=== PATIENT | male | born 1975 | race Hispanic/Latino ===

== ENCOUNTER 2018-10-07 20:05 | Observation (INO) | payer OTHER ==
[~2018-10-07] VITALS: Ht 177.8 cm; Wt 120.2 kg
[~2018-10-07 20:05] MED LIST: ATOR10 PO; CARV25TA PO; DOXY100T2 PO; HYDR25TA PO; LISI40TA4 PO; METF-445 PO
[2018-10-07 20:30] LABS: BASOPHILS % (AUTO) 0.8 % (0.0-5.0); HEMATOCRIT 46.4 % (42-54); MEAN CORPUSCULAR HEMOGLOBIN 33.4 pg (27.0-33.0); MEAN CORPUSCULAR HGB CONC 35.8 g/dL (32.0-36.0); MEAN CORPUSCULAR VOLUME 93.4 fL (79-99); NEUTROPHILS % (AUTO) 71.2 % (40.0-77.0); PLATELET COUNT (AUTO) 214 K/uL (130-400); RED BLOOD CELL COUNT(AUTO) 4.97 MIL/uL (4.50-6.20); WHITE BLOOD COUNT (AUTO) 10.6 K/uL (4.8-10.8)
[2018-10-07] MEDS ORDERED: ASPIRIN 81MG TAB.CHEW ONE (20:32)
[2018-10-07] MEDS ORDERED: ONDANSETRON HCL 4 MG/2 ML VIAL ONE (20:32)
[2018-10-07] MEDS ORDERED: MORPHINE SULFATE 2 MG/ML 1ML SYG ONE (20:33)
[2018-10-07] MEDS ORDERED: FAMOTIDINE/PF 20 MG/2 ML VIAL IV ONE (20:33)
[2018-10-07 20:44] LABS: APPEARANCE,URINE Clear (CLEAR); BILIRUBIN,URINE Small (NEGATIVE); COLOR,URINE Dark Yellow (YELLOW); CREATININE 1.2 mg/dL (0.5-1.5); GLUCOSE, URINE (UA) >=1000 mg/dL (NEGATIVE); KETONES,URINE Trace mg/dL (NEGATIVE); LEUKOCYTE ESTERASE ,URINE Negative (NEGATIVE); NITRATE,URINE Negative (NEGATIVE); OCCULT BLOOD,URINE Negative (NEGATIVE); POTASSIUM 3.1 mmol/L (3.5-5.1); PROTEIN,URINE Trace mg/dL (NEGATIVE)
[2018-10-07 20:49] LABS: ALBUMIN 3.2 g/dL (3.5-5.0); BILIRUBIN,TOTAL 0.8 mg/dL (0.2-1.0)
[2018-10-07 20:52] LABS: AMPHET/METH SCREEN,URINE NEGATIVE (NEGATIVE); BARBITURATE SCREEN, URINE NEGATIVE (NEGATIVE); BENZODIAZEPINES SCREEN,URINE NEGATIVE (NEGATIVE); CANNABINOID SCREEN,URINE NEGATIVE (NEGATIVE); COCAINE SCREEN,URINE NEGATIVE (NEGATIVE); OPIATE SCREEN,URINE NEGATIVE (NEGATIVE); PHENCYCLIDINE SCREEN,URINE NEGATIVE (NEGATIVE)
[2018-10-07 20:54] LABS: BACTERIA,URINE Rare /HPF (None Seen); RBC,URINE 0-1 /HPF (0-1); WBC,URINE 0-1 /HPF (0-1)
[2018-10-07 20:56] LABS: ABG OXYGEN SATURATION 90.7 % (95.0-99.0); BASE EXCESS,VENOUS BLOOD GAS -0.7 (-2.0-3.0); HCO3,VENOUS BLOOD GAS 22.8 (21.0-28.0); PCO2,VENOUS BLOOD GAS 35 (35-48); PH,VENOUS BLOOD GAS 7.437 (7.350-7.450)
[2018-10-07 20:56] LABS: SQUAMOUS EPITHELIAL CELL,UR Rare /HPF (0-2)
[2018-10-07] MEDS ORDERED: POTASSIUM BICARB/CIT AC 25 MEQ TABLET.EFF ONE (22:46)
[2018-10-07] MEDS ORDERED: INSULIN HUMULIN R 100 UNIT/ML 3ML ONE (22:46)
[2018-10-07] MEDS ORDERED: SODIUM CHLORIDE 0.9% 500ML 500 ML IV ONE (23:01)
[2018-10-07] MEDS ORDERED: NITROGLYCERIN 0.4 MG SL TAB SL ONE (23:01)
[2018-10-07] MEDS ORDERED: DEXTROSE 50%-WATER 50 ML DISP.SYRIN IV PRN (23:45)
[2018-10-07] MEDS ORDERED: GLUCAGON 1MG KIT 1 MG ML IM PRN (23:45)
[2018-10-08] VITALS (7 sets, daily range): BP systolic 124–161; BP diastolic 72–98
[2018-10-08] MEDS ORDERED: PENI500T2 PO (04:08)
[2018-10-08] MEDS ORDERED: GLIP1TAB5 PO (04:08)
[2018-10-08] MEDS ORDERED: ATOR10 PO (04:08)
[2018-10-08] MEDS ORDERED: MORPHINE SULFATE 4 MG/1ML SYG ONE (05:41)
[2018-10-08] MEDS ORDERED: MAG HYDROX/AL HYDROX/SIMETH ES 30 ML SUSP UDCUP ONE (05:41)
[2018-10-08] MEDS: NITROGLYCERIN 1GM/1 INCH PACKET TD SCH ×5 (05:43→17:20)
[2018-10-08] MEDS ORDERED: MAG HYDROX/AL HYDROX/SIMETH ES 30 ML SUSP UDCUP PO PRN (05:45)
[2018-10-08] MEDS ORDERED: ONDANSETRON HCL 4 MG/2 ML VIAL IVP PRN (05:45)
[2018-10-08] MEDS ORDERED: MORPHINE SULFATE 4 MG/1ML SYG IM PRN (05:45)
[2018-10-08] MEDS: INSULIN R PO SS1 SQ SCH ×4 (07:30→21:00)
[2018-10-08] MEDS: ASPIRIN 325MG EC TAB 325 MG TABLET.DR PO SCH (10:26)
--- NOTE | 2018-10-08 14:17 | NUR ---
Gabriela Arias aware; home meds pending to be resumed, orders entered.
[2018-10-08] MEDS ORDERED: SODIUM CHLORIDE 0.9% 1000ML 1,000 ML IV SCH (15:15)
[2018-10-08] MEDS ORDERED: ATORVASTATIN CALCIUM 20 MG TABLET PO SCH (21:00)
[2018-10-08] MEDS: CARVEDILOL 25 MG TABLET PO SCH (21:55)
[2018-10-09] MEDS: NITROGLYCERIN 1GM/1 INCH PACKET TD SCH ×3 (01:44→11:50)
[2018-10-09 03:00] VITALS: BP 144/94
[2018-10-09 05:56] LABS: BASOPHILS % (AUTO) 0.9 % (0.0-5.0); EOSINOPHILS % (AUTO) 1.5 % (0.0-8.0); HEMATOCRIT 45.3 % (42-54); LYMPHOCYTES % (AUTO) 36.4 % (21.0-51.0); MEAN CORPUSCULAR HEMOGLOBIN 32.8 pg (27.0-33.0); MEAN CORPUSCULAR HGB CONC 35.1 g/dL (32.0-36.0); MEAN CORPUSCULAR VOLUME 93.3 fL (79-99); MONOCYTES % (AUTO) 4.8 % (3.0-13.0); NEUTROPHILS % (AUTO) 56.4 % (40.0-77.0); NUCLEATED RED BLOOD CELLS 0.1 % (0.0-0.19); PLATELET COUNT (AUTO) 200 K/uL (130-400); RED BLOOD CELL COUNT(AUTO) 4.85 MIL/uL (4.50-6.20); RED CELL DISTRIBUTION WIDTH 13.7 % (11.0-15.5); WHITE BLOOD COUNT (AUTO) 8.6 K/uL (4.8-10.8)
[2018-10-09 06:01] LABS: ALANINE AMINOTRANSFERASE 23 U/L (12-78); ALBUMIN 2.9 g/dL (3.5-5.0); ALCOHOL, BLOOD < 3 mg/dL (0-10); ASPARTATE AMINOTRANSFERASE 11 U/L (10-37); BILIRUBIN,DIRECT 0.2 mg/dL (0.0-0.3); BILIRUBIN,TOTAL 1.2 mg/dL (0.2-1.0); CARBON DIOXIDE 30 mmol/L (21-32); CHLORIDE 99 mmol/L (101-111); CHOLESTEROL 117 mg/dL (<200); CREATININE 0.8 mg/dL (0.5-1.5); GLOMERULAR FILTR. RATE CALC 112 mL/min (>60); GLUCOSE,RANDOM 135 mg/dL (70-105); HDL CHOLESTEROL 27 mg/dL (29-71); LDL DIRECT 77 mg/dL (0-99); LIPASE 232 U/L (114-286); POTASSIUM 3.4 mmol/L (3.5-5.1); SODIUM SERUM 137 mmol/L (136-145); TOTAL PROTEIN, SERUM 6.3 g/dL (6.0-8.3); TRIGLYCERIDES 107 mg/dL (30-200); UREA NITROGEN, BLOOD 13 mg/dL (7-18)
[2018-10-09 06:15] LABS: B-TYPE NATRIURETIC PEPTIDE 129 pg/mL (0-100)
[2018-10-09 07:12] LABS: ABG BASE EXCESS 3.1 mmol/L (-2.0-3.0); ABG HCO3 26.6 mmol/L (21.0-28.0); ABG OXYGEN SATURATION 95.4 % (95.0-99.0); ABG PCO2 37 mmHg (35-48)
[2018-10-09] MEDS: INSULIN R PO SS1 SQ SCH ×2 (07:17→11:52)
[2018-10-09 08:00] VITALS: BP 142/94
[2018-10-09] MEDS: CARVEDILOL 25 MG TABLET PO SCH (08:14)
[2018-10-09] MEDS: ASPIRIN 325MG EC TAB 325 MG TABLET.DR PO SCH (08:14)
[2018-10-09] MEDS ORDERED: LISINOPRIL 40 MG TABLET PO SCH (09:00)
[2018-10-09] MEDS ORDERED: POTASSIUM CHLORIDE 10% ELIXIR 20 MEQ/15 ML UDCUP PO PRN (11:15)
[2018-10-09] MEDS ORDERED: POTASSIUM CHLORIDE 20MEQ/100ML 100 ML IV PRN (11:15)
[2018-10-09] MEDS ORDERED: PHARMACY COMMUNICATION MISC SCH (11:15)
[2018-10-09] MEDS ORDERED: LIDOCAINE HCL-MPF 1% 2ML VIAL IVP PRN (11:15)
[2018-10-09 11:28] VITALS: BP 147/95
[2018-10-09] MEDS ORDERED: MAGNESIUM SULFATE 1 GM in SODIUM CHLORIDE 0.9% 50 ML IV SCH (11:30)
--- NOTE | 2018-10-09 11:30 | NUR ---
Discharge orders noted in chart; verbal orders rec'd for mg and kcl replacement protocol at present for Mg of 1.7 and K of 3.4. Will discharge once replacement complete.
[2018-10-09] MEDS: POTASSIUM CHLORIDE 20 MEQ ERTAB PO PRN ×2 (11:50→13:34)
--- NOTE | 2018-10-09 15:25 | NUR ---
Discharge teaching completed in the room with pt and family. Emphasis on discharge dx of gastritis, s/s to monitor for, and when to seek emergency care / call 911. Pt is to follow up with Dr. Jackson in 3-5 days. Office is closed; Pt instructed he must call for appointment. No new rx written. PIV removed, tip intact. Dressed with 2x2 and band aid after hemostasis. Pt tolerated well. Telepack removed. Pt wheeled to front lobby by [facility] staff for discharge home via private car. Pt in stable condition. Accompanied by family.
== END 2018-10-09 15:10 | disposition home or self-care (01) ==
LOC: EDH 20:05 → EDHIP 22:53 → 3AH 10-08 01:00
PROVIDERS: ADMIT Internal Medicine Pulmonary Disease; ATTEND Internal Medicine Pulmonary Disease
DX: K29.00 Acute gastritis without bleeding (principal); I12.9 Hypertensive chronic kidney disease with stage 1 through stage 4 chronic kidney disease, or unspecified chronic kidney disease; N18.3 Chronic kidney disease, stage 3 (moderate); E11.22 Type 2 diabetes mellitus with diabetic chronic kidney disease; E66.9 Obesity, unspecified; E78.5 Hyperlipidemia, unspecified; Z87.442 Personal history of urinary calculi; Z79.84 Long term (current) use of oral hypoglycemic drugs; Z79.899 Other long term (current) drug therapy; Z87.891 Personal history of nicotine dependence
CPT/HCPCS: 36415 ×2; 36600 ×2; 71045; 71250; 74150; 76705; 78227; 80053 ×2; 80061; 80305; 81001; 82010; 82247; 82248; 82803 ×2; 82948 ×7; 83690 ×2; 83735; 83880; 84484 ×4; 85025 ×2; 93005 ×4; 94010; 96361 ×2; 96365; 96366; 96372 ×2; 99284; A9537; G0378 ×38; G0480; J1815 ×3; J2270 ×2; J2405; J3475; J3490; J7030; J7040

== ENCOUNTER 2018-11-10 20:57 | Observation (INO) | payer OTHER ==
[~2018-11-10] VITALS: Ht 177.8 cm; Wt 121.1 kg
[~2018-11-10 20:57] MED LIST changes: -DOXY100T2 PO; +GLIP1TAB5 PO; -METF-445 PO; +PENI500T2 PO
[2018-11-10] MEDS ORDERED: ONDANSETRON HCL 4 MG/2 ML VIAL ONE (21:14)
[2018-11-10] MEDS ORDERED: ACETAMINOPHEN EXTRA STRENGTH 500 MG TABLET ONE (21:14)
[2018-11-10] MEDS ORDERED: SODIUM CHLORIDE 0.9% 1000ML 4,000 ML IV ONE (21:14)
[2018-11-10 21:25] LABS: APPEARANCE,URINE Clear (CLEAR); BILIRUBIN,URINE Small (NEGATIVE); COLOR,URINE Dark Yellow (YELLOW); GLUCOSE, URINE (UA) >=1000 mg/dL (NEGATIVE); KETONES,URINE Trace mg/dL (NEGATIVE); LEUKOCYTE ESTERASE ,URINE Small (NEGATIVE); NITRATE,URINE Negative (NEGATIVE); OCCULT BLOOD,URINE Small (NEGATIVE); PH,URINE 5.5 (5.0-8.0); PROTEIN,URINE POS 2+ mg/dL (NEGATIVE)
[2018-11-10 21:40] LABS: BASOPHILS % (AUTO) 0.4 % (0.0-5.0); LYMPHOCYTES % (AUTO) 7.1 % (21.0-51.0); MEAN CORPUSCULAR HEMOGLOBIN 32.2 pg (27.0-33.0); MEAN CORPUSCULAR HGB CONC 34.6 g/dL (32.0-36.0); MEAN CORPUSCULAR VOLUME 93.1 fL (79-99); MONOCYTES % (AUTO) 5.2 % (3.0-13.0); NEUTROPHILS % (AUTO) 87.3 % (40.0-77.0); PLATELET COUNT (AUTO) 153 K/uL (130-400); RED BLOOD CELL COUNT(AUTO) 4.84 MIL/uL (4.50-6.20); RED CELL DISTRIBUTION WIDTH 13.5 % (11.0-15.5); WHITE BLOOD COUNT (AUTO) 19.9 K/uL (4.8-10.8)
[2018-11-10 21:43] LABS: BACTERIA,URINE Few /HPF (None Seen); SQUAMOUS EPITHELIAL CELL,UR Rare /HPF (0-2); WBC,URINE 26-50 /HPF (0-1)
[2018-11-10 21:44] LABS: MUCUS,URINE Rare LPF (None Seen)
[2018-11-10 21:50] LABS: CARBON DIOXIDE 28 mmol/L (21-32); CHLORIDE 92 mmol/L (101-111); CREATININE 1.1 mg/dL (0.5-1.5); GLOMERULAR FILTR. RATE CALC 77 mL/min (>60); GLUCOSE,RANDOM 286 mg/dL (70-105); SODIUM SERUM 129 mmol/L (136-145); UREA NITROGEN, BLOOD 14 mg/dL (7-18)
[2018-11-10 21:54] LABS: INR 1.08 (0.85-1.15); PARTIAL THROMBOPLASTIN TIME 30.3 SEC (26.3-35.5); PROTHROMBIN TIME 11.3 SEC (9.6-11.6)
[2018-11-10 22:05] LABS: ALANINE AMINOTRANSFERASE 23 U/L (12-78); ALBUMIN 3.1 g/dL (3.5-5.0); ASPARTATE AMINOTRANSFERASE 20 U/L (10-37); BILIRUBIN,TOTAL 2.3 mg/dL (0.2-1.0); CREATINE KINASE, TOTAL 41 U/L (21-232); MYOGLOBIN 29 ng/mL (10-92); TROPONIN I < 0.04 ng/mL (0.00-0.06)
[2018-11-10] MEDS ORDERED: CEFTRIAXONE SODIUM 2 GM VIAL ONE (22:26)
[2018-11-10 22:47] LABS: RAPID GROUP A STREP NEGATIVE (NEGATIVE)
[2018-11-10 23:14] LABS: BILIRUBIN,DIRECT 0.4 mg/dL (0.0-0.3)
[2018-11-11] MEDS ORDERED: POTASSIUM CHLORIDE 20 MEQ ERTAB PO ONE (00:28)
[2018-11-11] MEDS ORDERED: HYDROMORPHONE 1 MG/1 ML AMP IVP PRN (00:45)
[2018-11-11] MEDS: LACTATED RINGERS 1000ML 1,000 ML IV SCH ×3 (00:45→23:55)
[2018-11-11] MEDS ORDERED: ONDANSETRON HCL 4 MG/2 ML VIAL IVP PRN (00:45)
[2018-11-11] MEDS ORDERED: LACTATED RINGERS 1000ML 1,000 ML IV ONE (02:06)
[2018-11-11 02:30] VITALS: BP 142/99
[2018-11-11] MEDS ORDERED: PENI500T2 PO (03:07)
[2018-11-11] MEDS ORDERED: LISI40TA4 PO (03:07)
[2018-11-11] MEDS ORDERED: GLIP1TAB5 PO (03:07)
[2018-11-11] MEDS ORDERED: HYDR25TA PO (03:07)
[2018-11-11] MEDS ORDERED: OMEP40CA37 PO (03:07)
[2018-11-11] MEDS ORDERED: SENN-107 PO (03:07)
[2018-11-11] MEDS ORDERED: ATOR10 PO (03:08)
[2018-11-11] MEDS ORDERED: CARV25TA PO (03:08)
[2018-11-11] MEDS ORDERED: POTASSIUM CHLORIDE 10% ELIXIR 20 MEQ/15 ML UDCUP PO PRN (03:30)
[2018-11-11] MEDS ORDERED: LIDOCAINE HCL-MPF 1% 2ML VIAL IVP PRN (03:30)
[2018-11-11] MEDS ORDERED: MAGNESIUM 2GM PREMIX 50ML 50 ML IV PRN (03:30)
[2018-11-11] MEDS ORDERED: POTASSIUM CHLORIDE 20MEQ/100ML 100 ML IV PRN (03:30)
[2018-11-11 04:11] LABS: MEAN CORPUSCULAR HEMOGLOBIN 32.5 pg (27.0-33.0); MEAN CORPUSCULAR HGB CONC 35.1 g/dL (32.0-36.0); MEAN CORPUSCULAR VOLUME 92.4 fL (79-99); PLATELET COUNT (AUTO) 143 K/uL (130-400); RED BLOOD CELL COUNT(AUTO) 4.44 MIL/uL (4.50-6.20); RED CELL DISTRIBUTION WIDTH 13.4 % (11.0-15.5); WHITE BLOOD COUNT (AUTO) 18.6 K/uL (4.8-10.8)
[2018-11-11 04:19] LABS: CREATININE 0.9 mg/dL (0.5-1.5); MAGNESIUM 1.3 mg/dL (1.80-2.40); POTASSIUM 3.2 mmol/L (3.5-5.1)
[2018-11-11 08:00] VITALS: BP 137/87
[2018-11-11] MEDS: CEFTRIAXONE SODIUM 1 GM IVP SCH (09:24)
[2018-11-11 11:51] VITALS: BP 146/90
--- NOTE | 2018-11-11 12:00 | NUR ---
dr. evans aware of bs in the 200's states will round on patient later no orders states i have to see patient.
[2018-11-11] MEDS: ACETAMINOPHEN 325 MG TAB PO PRN ×2 (12:04→20:11)
[2018-11-11] MEDS: POTASSIUM CHLORIDE 20 MEQ ERTAB PO PRN ×3 (12:05→22:28)
--- NOTE | 2018-11-11 15:20 | NUR ---
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 COLI- STATES HAS HAD MANY UTIS AND KIDNEY STONES IN THE PAST, HAS BEEN DISABLED ABOUT THREE YEARS, LIES WITH [facility] WHO WILL PROVIDE TRANSPORT HOME , NO DME NO PORIVDER SERVICES, HAS BEEN TO [facility] BEFORE, BUT WOULD BE WILLING TO DO A SNF IF NEEDED FOR ABX. DENIES WEANESS OR MOBILITY PROBLEMS AT THIS TIME . PT HERE FOR UTI, AWAITING DISPOSITION// CULTURES CM TO FOLLOW Addendum: 11/11/18 at 1730 by SANDHYA DEAN RN CM Amended: Links added.
[2018-11-11 17:03] VITALS: BP 150/78
[2018-11-11] MEDS ORDERED: DOCUSATE SODIUM PO SCH (18:30)
[2018-11-11] MEDS ORDERED: GLUCAGON 1MG KIT 1 MG ML IM PRN (18:30)
[2018-11-11] MEDS ORDERED: MORPHINE SULFATE 2 MG/ML 1ML SYG IV PRN (18:30)
[2018-11-11] MEDS ORDERED: DEXTROSE 50%-WATER 50 ML DISP.SYRIN IV PRN (18:30)
[2018-11-11] MEDS ORDERED: SENNOSIDES PO SCH (18:30)
[2018-11-11 19:00] VITALS: BP 147/77
[2018-11-11] MEDS: MEROPENEM 1 GM VIAL IVP SCH (20:07)
[2018-11-11] MEDS: ATORVASTATIN CALCIUM 10 MG TABLET PO SCH (20:10)
[2018-11-11] MEDS: CARVEDILOL 25 MG TABLET PO SCH (20:11)
[2018-11-11] MEDS: INSULIN HUMULIN R 100 UNIT/ML 3ML SQ SCH (20:21)
[2018-11-12] VITALS: BP 117/72
[2018-11-12] MEDS: MEROPENEM 1 GM VIAL IVP SCH ×3 (03:04→19:38)
[2018-11-12 04:00] VITALS: BP 142/81
[2018-11-12 05:44] LABS: AMPHET/METH SCREEN,URINE NEGATIVE (NEGATIVE); BARBITURATE SCREEN, URINE NEGATIVE (NEGATIVE); BENZODIAZEPINES SCREEN,URINE NEGATIVE (NEGATIVE); CANNABINOID SCREEN,URINE NEGATIVE (NEGATIVE); COCAINE SCREEN,URINE NEGATIVE (NEGATIVE); OPIATE SCREEN,URINE NEGATIVE (NEGATIVE); PHENCYCLIDINE SCREEN,URINE NEGATIVE (NEGATIVE)
[2018-11-12 05:56] LABS: HEMATOCRIT 38.4 % (42-54); MEAN CORPUSCULAR HEMOGLOBIN 32.2 pg (27.0-33.0); MEAN CORPUSCULAR HGB CONC 34.8 g/dL (32.0-36.0); MEAN CORPUSCULAR VOLUME 92.5 fL (79-99); PLATELET COUNT (AUTO) 129 K/uL (130-400); RED BLOOD CELL COUNT(AUTO) 4.15 MIL/uL (4.50-6.20); RED CELL DISTRIBUTION WIDTH 13.6 % (11.0-15.5); WHITE BLOOD COUNT (AUTO) 14.2 K/uL (4.8-10.8)
[2018-11-12 06:03] LABS: CREATININE 0.8 mg/dL (0.5-1.5); POTASSIUM 3.3 mmol/L (3.5-5.1)
[2018-11-12] MEDS: INSULIN HUMULIN R 100 UNIT/ML 3ML SQ SCH ×4 (06:13→20:04)
[2018-11-12] MEDS: POTASSIUM CHLORIDE 20 MEQ ERTAB PO PRN ×2 (06:13→09:24)
[2018-11-12 08:00] VITALS: BP 143/76
[2018-11-12] MEDS: LACTATED RINGERS 1000ML 1,000 ML IV SCH ×2 (08:45→19:37)
[2018-11-12] MEDS: CARVEDILOL 25 MG TABLET PO SCH ×2 (09:00→19:39)
[2018-11-12] MEDS: LISINOPRIL 40 MG TABLET PO SCH (09:00)
[2018-11-12] MEDS: HYDROCHLOROTHIAZIDE 25 MG TABLET PO SCH (09:00)
[2018-11-12] MEDS: CEFTRIAXONE SODIUM 1 GM IVP SCH (09:26)
[2018-11-12 11:00] VITALS: BP 138/87
[2018-11-12 16:00] VITALS: BP 144/83
[2018-11-12 19:00] VITALS: BP 163/93
[2018-11-12] MEDS: ATORVASTATIN CALCIUM 10 MG TABLET PO SCH (19:38)
[2018-11-13] VITALS: BP 154/85
[2018-11-13] MEDS: LACTATED RINGERS 1000ML 1,000 ML IV SCH (00:45)
[2018-11-13] MEDS: MEROPENEM 1 GM VIAL IVP SCH ×2 (03:07→11:52)
[2018-11-13 04:00] VITALS: BP 163/94
[2018-11-13 04:38] LABS: BASOPHILS % (AUTO) 0.7 % (0.0-5.0); EOSINOPHILS % (AUTO) 0.8 % (0.0-8.0); HEMATOCRIT 40.6 % (42-54); LYMPHOCYTES % (AUTO) 19.2 % (21.0-51.0); MEAN CORPUSCULAR HEMOGLOBIN 32.3 pg (27.0-33.0); MEAN CORPUSCULAR VOLUME 92.3 fL (79-99); MONOCYTES % (AUTO) 6.5 % (3.0-13.0); NEUTROPHILS % (AUTO) 72.8 % (40.0-77.0); PLATELET COUNT (AUTO) 149 K/uL (130-400); RED BLOOD CELL COUNT(AUTO) 4.39 MIL/uL (4.50-6.20); RED CELL DISTRIBUTION WIDTH 13.6 % (11.0-15.5); WHITE BLOOD COUNT (AUTO) 6.5 K/uL (4.8-10.8)
[2018-11-13] MEDS: INSULIN HUMULIN R 100 UNIT/ML 3ML SQ SCH ×2 (06:17→11:54)
[2018-11-13 08:00] VITALS: BP 157/97
--- NOTE | 2018-11-13 08:00 | NUR ---
AM ROUNDS, STATES FEELING BETTER. WAS TOLD YESTERDAY HE WAS GOING TO BE DISCHARGED TODAY. NO DC ORDERS IN PLACE AT THIS TIME.
[2018-11-13] MEDS: HYDROCHLOROTHIAZIDE 25 MG TABLET PO SCH (09:08)
[2018-11-13] MEDS: LISINOPRIL 40 MG TABLET PO SCH (09:08)
[2018-11-13] MEDS: CARVEDILOL 25 MG TABLET PO SCH (09:09)
[2018-11-13] MEDS: CEFTRIAXONE SODIUM 1 GM IVP SCH ×2 (09:09→09:10)
[2018-11-13 11:00] VITALS: BP 163/104
--- NOTE | 2018-11-13 16:00 | NUR ---
DISCHARGED NOW USING TEACH BACK, VERBALIZED UNDERSTANDING OF ALL INST. GIVEN. RX FOR BACTRIM DS. CALLED IN TO [facility] IN [place].WILL FOLLOW UP WITH WITH PCP IN AM.
== END 2018-11-13 16:15 | disposition home or self-care (01) ==
LOC: EDH 20:57 → EDHIP 11-11 00:13 → 3AH 11-11 01:20
PROVIDERS: ADMIT Internal Medicine Critical Care Medicine; ATTEND Internal Medicine Critical Care Medicine
DX: N12 Tubulo-interstitial nephritis, not specified as acute or chronic (principal); E11.9 Type 2 diabetes mellitus without complications; E78.5 Hyperlipidemia, unspecified; I10 Essential (primary) hypertension; F17.200 Nicotine dependence, unspecified, uncomplicated; Z87.442 Personal history of urinary calculi
CPT/HCPCS: 36415 ×4; 71045; 76700; 80048 ×2; 80053; 80305; 81001; 82248; 82550; 82948 ×10; 83605 ×2; 83690; 83735; 83874; 84484; 85025 ×2; 85027 ×2; 85610; 85730; 87040 ×4; 87077; 87088; 87186; 87804 ×2; 87880; 93005; 94660 ×2; 96365; 96366; 96375; 96376 ×2; 99284; G0378 ×62; J0696 ×4; J1170; J1815 ×6; J2185 ×6; J2405; J3475; J7030; J7120 ×3

== ENCOUNTER 2018-12-11 23:37 | Observation (INO) | payer OTHER ==
[~2018-12-11] VITALS: Ht 177.8 cm; Wt 119.2 kg
[~2018-12-11 23:37] MED LIST changes: +OMEP40CA37 PO; +SENN-107 PO
[2018-12-11] MEDS ORDERED: ACETAMINOPHEN EXTRA STRENGTH 500 MG TABLET ONE (23:52)
[2018-12-12] VITALS (7 sets, daily range): BP systolic 142–171; BP diastolic 82–100
[2018-12-12] MEDS ORDERED: SODIUM CHLORIDE 0.9% 1000ML 1,000 ML IV ONE (01:00)
[2018-12-12 01:10] LABS: BASOPHILS % (AUTO) 1.4 % (0.0-5.0); EOSINOPHILS % (AUTO) 1.7 % (0.0-8.0); HEMATOCRIT 49.3 % (42-54); LYMPHOCYTES % (AUTO) 34.4 % (21.0-51.0); MEAN CORPUSCULAR HEMOGLOBIN 33.4 pg (27.0-33.0); MEAN CORPUSCULAR HGB CONC 35.4 g/dL (32.0-36.0); MEAN CORPUSCULAR VOLUME 94.6 fL (79-99); MONOCYTES % (AUTO) 4.3 % (3.0-13.0); NEUTROPHILS % (AUTO) 58.2 % (40.0-77.0); NUCLEATED RED BLOOD CELLS 0.1 % (0.0-0.19); PLATELET COUNT (AUTO) 173 K/uL (130-400); RED BLOOD CELL COUNT(AUTO) 5.21 MIL/uL (4.50-6.20); RED CELL DISTRIBUTION WIDTH 15.3 % (11.0-15.5); WHITE BLOOD COUNT (AUTO) 12.9 K/uL (4.8-10.8)
[2018-12-12 01:12] LABS: APPEARANCE,URINE Clear (CLEAR); BILIRUBIN,URINE Negative (NEGATIVE); COLOR,URINE Yellow (YELLOW); GLUCOSE, URINE (UA) Negative (NEGATIVE); KETONES,URINE Negative (NEGATIVE); LEUKOCYTE ESTERASE ,URINE Negative (NEGATIVE); NITRATE,URINE Negative (NEGATIVE); OCCULT BLOOD,URINE Negative (NEGATIVE); PROTEIN,URINE Negative (NEGATIVE); UROBILINOGEN,URINE 0.2 mg/dL (0.2-1.0)
[2018-12-12 01:19] LABS: AMPHET/METH SCREEN,URINE NEGATIVE (NEGATIVE); BARBITURATE SCREEN, URINE NEGATIVE (NEGATIVE); BENZODIAZEPINES SCREEN,URINE NEGATIVE (NEGATIVE); CANNABINOID SCREEN,URINE NEGATIVE (NEGATIVE); COCAINE SCREEN,URINE NEGATIVE (NEGATIVE); OPIATE SCREEN,URINE NEGATIVE (NEGATIVE); PHENCYCLIDINE SCREEN,URINE NEGATIVE (NEGATIVE)
[2018-12-12 01:23] LABS: ALBUMIN 3.5 g/dL (3.5-5.0); BILIRUBIN,TOTAL 0.7 mg/dL (0.2-1.0); CREATININE 0.9 mg/dL (0.5-1.5); TOTAL PROTEIN, SERUM 7.3 g/dL (6.0-8.3)
[2018-12-12 01:24] LABS: INR 0.94 (0.85-1.15); PARTIAL THROMBOPLASTIN TIME 26.5 SEC (26.3-35.5); PROTHROMBIN TIME 9.9 SEC (9.6-11.6)
[2018-12-12 01:25] LABS: ALCOHOL, BLOOD 92 mg/dL (0-10); CREATINE KINASE, TOTAL 39 U/L (21-232); LIPASE 229 U/L (114-286)
[2018-12-12] MEDS ORDERED: POTASSIUM CHLORIDE 20 MEQ ERTAB PO ONE (02:06)
[2018-12-12] MEDS ORDERED: THIAMINE HCL 100 MG/ML 2ML VIAL ONE (04:09)
[2018-12-12] MEDS ORDERED: M.V.I. IV [ADULT] 10 ML VIAL IV ONE (04:10)
[2018-12-12] MEDS ORDERED: FOLIC ACID 5 MG/ML 10 ML VIAL ONE (04:28)
[2018-12-12 06:37] LABS: BASOPHILS % (AUTO) 1.5 % (0.0-5.0); EOSINOPHILS % (AUTO) 1.9 % (0.0-8.0); HEMATOCRIT 47.6 % (42-54); LYMPHOCYTES % (AUTO) 39.8 % (21.0-51.0); MEAN CORPUSCULAR HEMOGLOBIN 33.1 pg (27.0-33.0); MEAN CORPUSCULAR HGB CONC 35.1 g/dL (32.0-36.0); MEAN CORPUSCULAR VOLUME 94.3 fL (79-99); NEUTROPHILS % (AUTO) 51.8 % (40.0-77.0); NUCLEATED RED BLOOD CELLS 0.1 % (0.0-0.19); PLATELET COUNT (AUTO) 148 K/uL (130-400); RED BLOOD CELL COUNT(AUTO) 5.05 MIL/uL (4.50-6.20); RED CELL DISTRIBUTION WIDTH 15.1 % (11.0-15.5); WHITE BLOOD COUNT (AUTO) 9.6 K/uL (4.8-10.8)
[2018-12-12] MEDS ORDERED: POTASSIUM CHLORIDE 20 MEQ ERTAB PO PRN (06:45)
[2018-12-12] MEDS ORDERED: POTASSIUM CHLORIDE 20MEQ/100ML 100 ML IV PRN (06:45)
[2018-12-12] MEDS ORDERED: NITROGLYCERIN 0.4 MG SL TAB SL PRN (06:45)
[2018-12-12] MEDS ORDERED: ONDANSETRON HCL 4 MG/2 ML VIAL IVP PRN (06:45)
[2018-12-12] MEDS ORDERED: ACETAMINOPHEN 325 MG TAB PO PRN (06:45)
[2018-12-12] MEDS ORDERED: POTASSIUM CHLORIDE 10% ELIXIR 20 MEQ/15 ML UDCUP PO PRN (06:45)
[2018-12-12 06:50] LABS: CREATININE 0.4 mg/dL (0.5-1.5)
[2018-12-12 07:12] LABS: POTASSIUM 2.3 mmol/L (3.5-5.1)
--- NOTE | 2018-12-12 07:58 | NUR ---
PATIENT ARRIVED ON UNIT ALERT AND ORIENTATED X3, DENIES PAIN AT THIS TIME , OREINTATED TO ROOM AND CALL LIGHT SYSTEM , SIDE RAILS UP X 2, WILL CONTINUE TO MONITOR.
--- NOTE | 2018-12-12 08:19 | NUR ---
DR YUSUF CONSULTED ON PATIENT RETURNED CALL AND WILL SEE PATIENT TODAY
[2018-12-12] MEDS ORDERED: MAGNESIUM 2GM PREMIX IV PRN (08:30)
[2018-12-12] MEDS: BANANA BAG IV SCH ×4 (09:00)
[2018-12-12] MEDS: ASPIRIN 81MG TAB.CHEW PO SCH (09:00)
[2018-12-12] MEDS ORDERED: PANTOPRAZOLE SODIUM 40 MG TABLET.DR PO ONE (09:59)
[2018-12-12] MEDS ORDERED: CALCIUM GLUCONATE 1 GM/10 ML VIAL IV SCH (11:00)
[2018-12-12] MEDS ORDERED: DEXTROSE 50%-WATER 50 ML DISP.SYRIN IV PRN (11:00)
[2018-12-12] MEDS ORDERED: GLUCAGON 1MG KIT 1 MG ML IM PRN (11:00)
[2018-12-12] MEDS: LIDOCAINE HCL-MPF 1% 2ML VIAL IJ PRN ×2 (11:11→14:05)
[2018-12-12] MEDS: IPRATROPIUM 0.5 MG/2.5 ML INH IH SCH ×3 (12:00→23:50)
[2018-12-12] MEDS: INSULIN HUMULIN R 100 UNIT/ML 3ML SQ SCH ×3 (12:07→21:55)
--- NOTE | 2018-12-12 12:44 | NUR ---
INITIAL MET W PT, SLEEPY BUT ORIENTED, LIVES W [facility] WHO WILL PROVIDE TRANSPORT HOME. NO DME, NO PROVIDER, DOMEN[place], IS INDP OF ADLS, DCP IS HOME Addendum: 12/12/18 at 1247 by SANDHYA DEAN RN Amended: Links added.
[2018-12-12 13:06] LABS: CREATININE 0.9 mg/dL (0.5-1.5)
[2018-12-12] MEDS: LACTATED RINGERS IV SCH (14:09)
[2018-12-12] MEDS: POTASSIUM CHLORIDE IV SCH (14:09)
[2018-12-12] MEDS: CEFTRIAXONE SODIUM 1 GM IVP SCH (16:34)
[2018-12-12] MEDS: FAMOTIDINE 20MG TAB 20 MG TAB PO SCH (21:58)
[2018-12-13] VITALS (8 sets, daily range): BP systolic 141–171; BP diastolic 84–105
[2018-12-13] MEDS: POTASSIUM CHLORIDE IV SCH ×3 (01:12→20:47)
[2018-12-13] MEDS: LACTATED RINGERS IV SCH ×3 (01:12→20:47)
[2018-12-13 05:05] LABS: BASOPHILS % (AUTO) 0.2 % (0.0-5.0); EOSINOPHILS % (AUTO) 1.4 % (0.0-8.0); HEMATOCRIT 47.3 % (42-54); LYMPHOCYTES % (AUTO) 37.9 % (21.0-51.0); MEAN CORPUSCULAR HEMOGLOBIN 33.1 pg (27.0-33.0); MEAN CORPUSCULAR HGB CONC 35.1 g/dL (32.0-36.0); MEAN CORPUSCULAR VOLUME 94.3 fL (79-99); MONOCYTES % (AUTO) 6.4 % (3.0-13.0); NEUTROPHILS % (AUTO) 54.1 % (40.0-77.0); PLATELET COUNT (AUTO) 158 K/uL (130-400); RED BLOOD CELL COUNT(AUTO) 5.02 MIL/uL (4.50-6.20); RED CELL DISTRIBUTION WIDTH 15.4 % (11.0-15.5); WHITE BLOOD COUNT (AUTO) 9.3 K/uL (4.8-10.8)
[2018-12-13] MEDS: INSULIN HUMULIN R 100 UNIT/ML 3ML SQ SCH ×4 (05:18→20:46)
[2018-12-13 05:21] LABS: HEMOGLOBIN A1C 7.2 % (4.0-6.0)
[2018-12-13] MEDS: IPRATROPIUM 0.5 MG/2.5 ML INH IH SCH ×3 (05:26→19:17)
[2018-12-13 05:28] LABS: CREATININE 0.8 mg/dL (0.5-1.5); POTASSIUM 3.7 mmol/L (3.5-5.1)
[2018-12-13] MEDS: PANTOPRAZOLE SODIUM 40 MG TABLET.DR PO SCH (06:41)
[2018-12-13] MEDS: HYDRALAZINE HCL 20 MG/ML VIAL IV PRN (06:42)
--- NOTE | 2018-12-13 07:53 | NUR ---
BLOOD PRESSURE RECHECK BLOOD PRESSURE RECHECK ORTHOSTATIC CHECKED LAYING B/P 162/95 P 81, SITTING B/P 155/97 , P 77 STANDING B/P 163/98 P 78. WILL CONTINUE TO MONITOR
[2018-12-13] MEDS: FAMOTIDINE 20MG TAB 20 MG TAB PO SCH ×2 (09:27→20:47)
[2018-12-13] MEDS: BANANA BAG IV SCH ×8 (09:27→13:27)
[2018-12-13] MEDS: ASPIRIN 81MG TAB.CHEW PO SCH (09:28)
[2018-12-13] MEDS: ENOXAPARIN SODIUM 30 MG/0.3 ML SQ SCH (09:29)
--- NOTE | 2018-12-13 12:10 | NUR ---
HEMODIALYSIS COMPLETE STARTED AT 09 COMPLETED AT 1210 WITH 3 LITERS REMOVED VS B/P 157/8371 P 83 . SITTING UP EATING LUNCH Addendum: 12/13/18 at 1528 by NATHALIE ARCE RN RN WRONG PATIENT DOCUMENTATION
[2018-12-13] MEDS ORDERED: MULT-1203 PO (15:19)
--- NOTE | 2018-12-13 16:30 | NUR ---
DR STONE ROUNDED ON PATIENT, , PATIENT WILL FOLLOW-UP WITH HIM OUT PATIENT FOLLOW-UP IN 1-2 WEEKS.
[2018-12-13] MEDS: CEFTRIAXONE SODIUM 1 GM IVP SCH (16:33)
[2018-12-14] MEDS: IPRATROPIUM 0.5 MG/2.5 ML INH IH SCH ×3 (00:37→10:54)
[2018-12-14 03:52] VITALS: BP 161/112
[2018-12-14] MEDS: LACTATED RINGERS IV SCH ×2 (04:29→13:30)
[2018-12-14] MEDS: POTASSIUM CHLORIDE IV SCH ×2 (04:29→13:30)
[2018-12-14 05:00] LABS: BASOPHILS % (AUTO) 1.3 % (0.0-5.0); EOSINOPHILS % (AUTO) 1.7 % (0.0-8.0); LYMPHOCYTES % (AUTO) 40.1 % (21.0-51.0); MEAN CORPUSCULAR HEMOGLOBIN 33.2 pg (27.0-33.0); MEAN CORPUSCULAR HGB CONC 34.8 g/dL (32.0-36.0); MEAN CORPUSCULAR VOLUME 95.2 fL (79-99); MONOCYTES % (AUTO) 7.3 % (3.0-13.0); NEUTROPHILS % (AUTO) 49.6 % (40.0-77.0); NUCLEATED RED BLOOD CELLS 0.1 % (0.0-0.19); PLATELET COUNT (AUTO) 155 K/uL (130-400); RED BLOOD CELL COUNT(AUTO) 4.84 MIL/uL (4.50-6.20); RED CELL DISTRIBUTION WIDTH 15.2 % (11.0-15.5); WHITE BLOOD COUNT (AUTO) 7.1 K/uL (4.8-10.8)
[2018-12-14 05:08] LABS: CREATININE 0.9 mg/dL (0.5-1.5); POTASSIUM 3.6 mmol/L (3.5-5.1)
[2018-12-14] MEDS: INSULIN HUMULIN R 100 UNIT/ML 3ML SQ SCH ×2 (05:24→12:48)
[2018-12-14] MEDS: HYDRALAZINE HCL 20 MG/ML VIAL IV PRN (05:31)
[2018-12-14 08:00] VITALS: BP 174/106
[2018-12-14] MEDS: PANTOPRAZOLE SODIUM 40 MG TABLET.DR PO SCH ×3 (08:02→10:45)
[2018-12-14] MEDS: ASPIRIN 81MG TAB.CHEW PO SCH (08:56)
[2018-12-14] MEDS: FAMOTIDINE 20MG TAB 20 MG TAB PO SCH (08:56)
[2018-12-14] MEDS: ENOXAPARIN SODIUM 30 MG/0.3 ML SQ SCH (08:57)
[2018-12-14] MEDS ORDERED: LOSARTAN 100 MG TABLET ONE (10:43)
[2018-12-14] MEDS ORDERED: CARVEDILOL 25 MG TABLET PO SCH ×2 (11:00→21:00)
[2018-12-14 12:00] VITALS: BP 155/106
[2018-12-15] MEDS ORDERED: LOSARTAN 100 MG TABLET PO SCH (09:00)
== END 2018-12-14 17:45 | disposition home or self-care (01) ==
LOC: EDH 23:37 → EDHIP 12-12 03:30 → 4BH 12-12 07:37 → 4CH 12-14 05:44
PROVIDERS: ADMIT Internal Medicine Critical Care Medicine; ATTEND Internal Medicine Critical Care Medicine
DX: R55 Syncope and collapse (principal); E11.9 Type 2 diabetes mellitus without complications; E78.5 Hyperlipidemia, unspecified; E83.42 Hypomagnesemia; E86.0 Dehydration; E87.6 Hypokalemia; I11.0 Hypertensive heart disease with heart failure; I50.9 Heart failure, unspecified; I25.10 Atherosclerotic heart disease of native coronary artery without angina pectoris; I42.9 Cardiomyopathy, unspecified; F17.210 Nicotine dependence, cigarettes, uncomplicated; F10.129 Alcohol abuse with intoxication, unspecified; Z79.899 Other long term (current) drug therapy; Z87.442 Personal history of urinary calculi
CPT/HCPCS: 36415 ×3; 71045; 80048 ×2; 80053; 80305; 81003; 82330; 82550; 82948 ×10; 83036; 83605 ×2; 83690; 83735 ×2; 83880; 84484 ×4; 85025 ×4; 85610; 85730; 87040 ×2; 87088; 87804 ×2; 93005; 93306; 94640 ×9; 94664; 96365; 96366 ×3; 96367 ×2; 96372 ×4; 96375 ×2; 96376 ×2; 99284; G0378 ×45; G0480; J0360 ×2; J0610; J0696 ×2; J1650 ×2; J1815 ×7; J3411 ×3; J3475; J3480 ×5; J3490 ×5; J7030 ×3; J7120 ×3; 96361

== ENCOUNTER 2019-04-24 23:07 | Emergency (ER) | payer OTHER ==
[~2019-04-24 23:07] MED LIST changes: +MULT-1203 PO; +OMEP40CA13 PO; -OMEP40CA37 PO; -PENI500T2 PO
[2019-04-24] MEDS ORDERED: CLINDAMYCIN HCL 150 MG CAP ONE (23:37)
[2019-04-24] MEDS ORDERED: MAG HYDROX/AL HYDROX/SIMETH ES 30 ML SUSP UDCUP ONE (23:37)
[2019-04-24] MEDS ORDERED: LIDOCAINE HCL 2% VISCOUS 15 ML UDCUP ONE (23:37)
[2019-04-24] MEDS ORDERED: ERYTHROMYCIN BASE 0.5% OPHTH OINT 1 GM TUBE ONE (23:38)
[2019-04-24] MEDS ORDERED: ACETAMINOPHEN EXTRA STRENGTH 500 MG TABLET ONE (23:38)
== END 2019-04-24 23:48 | disposition home or self-care (01) ==
LOC: EDH 23:07
DX: J06.9 Acute upper respiratory infection, unspecified (principal); J03.90 Acute tonsillitis, unspecified; H10.89 Other conjunctivitis; E11.9 Type 2 diabetes mellitus without complications; E78.5 Hyperlipidemia, unspecified; I11.0 Hypertensive heart disease with heart failure; I50.9 Heart failure, unspecified; I25.10 Atherosclerotic heart disease of native coronary artery without angina pectoris; J45.909 Unspecified asthma, uncomplicated; Z72.0 Tobacco use

== ENCOUNTER 2019-05-27 21:23 | Emergency (ER) | payer OTHER ==
[2019-05-27 22:23] LABS: CREATININE 0.9 mg/dL (0.5-1.5); POTASSIUM 3.2 mmol/L (3.5-5.1)
[2019-05-27 22:28] LABS: ALBUMIN 3.8 g/dL (3.5-5.0); BILIRUBIN,TOTAL 1.5 mg/dL (0.2-1.0); TOTAL PROTEIN, SERUM 7.2 g/dL (6.0-8.3)
[2019-05-27] MEDS ORDERED: ACETAMINOPHEN 325 MG TAB ONE (23:40)
[2019-05-27] MEDS ORDERED: POTASSIUM CHLORIDE 10% ELIXIR 20 MEQ/15 ML UDCUP ONE (23:40)
[2019-05-27] MEDS ORDERED: OSELTAMIVIR PHOSPHATE 75 MG CAP ONE (23:41)
[2019-05-27] MEDS ORDERED: DIPHENHYDRAMINE HCL 25 MG CAPSULE ONE (23:41)
== END 2019-05-27 23:54 | disposition home or self-care (01) ==
LOC: EDH 21:23
DX: J06.9 Acute upper respiratory infection, unspecified (principal); E87.6 Hypokalemia; I10 Essential (primary) hypertension; J45.909 Unspecified asthma, uncomplicated; E11.9 Type 2 diabetes mellitus without complications; Z72.0 Tobacco use
CPT/HCPCS: 36415; 71046; 80053; 82550; 83605; 83880; 84484; 87804 ×2; 93005; 99285; Q0163; 12031

== ENCOUNTER 2021-11-03 18:03 | Emergency (ER) | payer OTHER ==
[~2021-11-03] VITALS: Ht 177.8 cm; Wt 121.1 kg
[~2021-11-03 18:03] MED LIST changes: -GLIP1TAB5 PO; -LISI40TA4 PO; +LOSA50TA64 PO; +METF-444 PO; -MULT-1203 PO; +OMEP20CA12 PO; -OMEP40CA13 PO; -SENN-107 PO; +TAMS-1 PO
[2021-11-03 18:05] VITALS: BP 129/77
[2021-11-03] MEDS ORDERED: HYDROCODONE/ACETAMINOPHEN 10/325 MG TAB PO ONE (18:30)
[2021-11-03] MEDS ORDERED: CYCLOBENZAPRINE HCL 10 MG TABLET PO ONE (18:30)
[2021-11-03] MEDS ORDERED: TRAM1TAB2 PO (18:52)
[2021-11-03] MEDS ORDERED: CYCL10TA16 PO (18:53)
== END 2021-11-03 19:18 | disposition home or self-care (01) ==
LOC: EDH 18:03
DX: S20.212A Contusion of left front wall of thorax, initial encounter (principal); S30.0XXA Contusion of lower back and pelvis, initial encounter; E11.9 Type 2 diabetes mellitus without complications; I10 Essential (primary) hypertension; E78.00 Pure hypercholesterolemia, unspecified; E66.09 Other obesity due to excess calories; Z68.38 Body mass index [BMI] 38.0-38.9, adult; Y08.89XA Assault by other specified means, initial encounter; Y93.89 Activity, other specified; Y92.89 Other specified places as the place of occurrence of the external cause; Y99.8 Other external cause status
CPT/HCPCS: 71101; 72170

== ENCOUNTER → 2022-02-21 | Outpatient (CLI) | payer OTHER ==
[~2022-02-21] MED LIST changes: +CYCL10TA16 PO; +TRAM1TAB2 PO
== END | disposition home or self-care (01) ==
LOC: SHCH 11:06
PROVIDERS: ATTEND Internal Medicine Cardiovascular Disease
DX: I51.7 Cardiomegaly (principal); R01.1 Cardiac murmur, unspecified; I51.89 Other ill-defined heart diseases
CPT/HCPCS: 93306

== ENCOUNTER 2022-03-18 18:58 | Emergency (ER) | payer OTHER ==
[~2022-03-18] VITALS: Ht 177.8 cm; Wt 119.7 kg
[2022-03-18] MEDS ORDERED: AMOX1TAB16 PO (21:13)
[2022-03-18] MEDS ORDERED: BENZ-39 PO (21:13)
[2022-03-18 21:29] VITALS: BP 125/74
== END 2022-03-18 21:36 | disposition home or self-care (01) ==
LOC: EDH 18:58
DX: J06.9 Acute upper respiratory infection, unspecified (principal); Z20.822 Contact with and (suspected) exposure to COVID-19; E11.9 Type 2 diabetes mellitus without complications; E78.00 Pure hypercholesterolemia, unspecified; I10 Essential (primary) hypertension; E66.09 Other obesity due to excess calories; Z68.37 Body mass index [BMI] 37.0-37.9, adult
CPT/HCPCS: 99283; 87635; 87880; 87804 ×2; C9803

== ENCOUNTER 2022-07-12 01:13 | Emergency (ER) | payer OTHER ==
[~2022-07-12] VITALS: Ht 177.8 cm; Wt 121.6 kg
[~2022-07-12 01:13] MED LIST changes: +AMOX1TAB16 PO; +BENZ-39 PO
[2022-07-12 04:22] LABS: APPEARANCE,URINE CLEAR (CLEAR); BILIRUBIN,URINE NEGATIVE (NEGATIVE); COLOR,URINE COLORLESS (YELLOW); GLUCOSE, URINE (UA) 500 mg/dL (NEGATIVE); KETONES,URINE NEGATIVE (NEGATIVE); LEUKOCYTE ESTERASE ,URINE NEGATIVE Leu/uL (NEGATIVE); NITRATE,URINE NEGATIVE (NEGATIVE); OCCULT BLOOD,URINE NEGATIVE (NEGATIVE); PROTEIN,URINE NEGATIVE (NEGATIVE); UROBILINOGEN,URINE 0.2 mg/dL (0.2-1.0)
[2022-07-12 04:23] LABS: BACTERIA,URINE RARE /HPF (None Seen); RBC,URINE 0-1 /HPF (0-1)
[2022-07-12 04:24] LABS: BASOPHILS % (AUTO) 0.7 % (0.0-5.0); EOSINOPHILS % (AUTO) 1.7 % (0.0-8.0); HEMATOCRIT 45.6 % (42-54); MEAN CORPUSCULAR HEMOGLOBIN 30.3 pg (27.0-33.0); MEAN CORPUSCULAR HGB CONC 34.9 g/dL (32.0-36.0); MONOCYTES % (AUTO) 4.5 % (3.0-13.0); NEUTROPHILS % (AUTO) 53.8 % (40.0-77.0); PLATELET COUNT (AUTO) 196 K/uL (130-400); RED BLOOD CELL COUNT(AUTO) 5.24 MIL/uL (4.50-6.20); RED CELL DISTRIBUTION WIDTH 12.9 % (11.0-15.5); WHITE BLOOD COUNT (AUTO) 12.2 K/uL (4.8-10.8)
[2022-07-12 04:37] LABS: POTASSIUM 3.2 mmol/L (3.5-5.1)
[2022-07-12 04:42] LABS: ALBUMIN 3.7 g/dL (3.5-5.0); TOTAL PROTEIN, SERUM 7.5 g/dL (6.0-8.3)
[2022-07-12] MEDS ORDERED: IOHEXOL 350 MG/ML 100ML INFUS..BTL IV ONE (04:57)
[2022-07-12 06:32] VITALS: BP 126/81
== END 2022-07-12 06:47 | disposition home or self-care (01) ==
LOC: EDH 01:13
DX: R07.89 Other chest pain (principal); R51.9 Headache, unspecified; F10.129 Alcohol abuse with intoxication, unspecified; I10 Essential (primary) hypertension; E78.00 Pure hypercholesterolemia, unspecified; E66.01 Morbid (severe) obesity due to excess calories; Z68.38 Body mass index [BMI] 38.0-38.9, adult; Z79.899 Other long term (current) drug therapy; Z79.84 Long term (current) use of oral hypoglycemic drugs; V89.2XXA Person injured in unspecified motor-vehicle accident, traffic, initial encounter; Y92.488 Other paved roadways as the place of occurrence of the external cause; Y93.I9 Activity, other involving external motion; Y99.8 Other external cause status
CPT/HCPCS: 99285; 72125; 80053; 85025; 81001; 36415; 71260; 74177; Q9967

== ENCOUNTER 2023-04-17 14:39 | Observation (INO) | payer OTHER ==
[~2023-04-17] VITALS: Ht 177.8 cm; Wt 103.0 kg
[2023-04-17 17:28] LABS: BASOPHILS # (AUTO) 0.06 K/uL (0.00-0.20); BASOPHILS % (AUTO) 0.5 % (0.0-5.0); EOSINOPHILS # (AUTO) 0.04 K/uL (0.00-0.70); EOSINOPHILS % (AUTO) 0.4 % (0.0-8.0); HEMATOCRIT 44.7 % (42-54); IMMATURE GRANULOCYTE ABSOLUTE 0.05 K/uL (0-1); LYMPHOCYTES % (AUTO) 18.3 % (21.0-51.0); MEAN CORPUSCULAR HEMOGLOBIN 30.7 pg (27.0-33.0); MEAN CORPUSCULAR HGB CONC 34.9 g/dL (32.0-36.0); MONOCYTES # (AUTO) 0.6 K/uL (0.1-1.0); NEUTROPHILS # (AUTO) 8.4 K/uL (1.8-7.7); NEUTROPHILS % (AUTO) 75.3 % (40.0-77.0); PLATELET COUNT (AUTO) 202 K/uL (130-400); RED BLOOD CELL COUNT(AUTO) 5.08 MIL/uL (4.50-6.20); RED CELL DISTRIBUTION WIDTH 12.1 % (11.0-15.5); WHITE BLOOD COUNT (AUTO) 11.1 K/uL (4.8-10.8)
[2023-04-17] MEDS ORDERED: ONDANSETRON 4MG INJ IVP ONE (17:30)
[2023-04-17] MEDS ORDERED: 0.9%NACL 1000ML 1,000 ML IV ONE (17:30)
[2023-04-17] MEDS ORDERED: MORPHINE 4 MG SYG IVP ONE ×2 (17:30→22:30)
[2023-04-17 17:37] LABS: CREATININE 1.1 mg/dL (0.5-1.5); POTASSIUM 3.2 mmol/L (3.5-5.1)
[2023-04-17 17:41] LABS: ALBUMIN 3.3 g/dL (3.5-5.0); BILIRUBIN,DIRECT 0.4 mg/dL (0.0-0.3); BILIRUBIN,TOTAL 2.8 mg/dL (0.2-1.0)
[2023-04-17 19:05] LABS: APPEARANCE,URINE CLEAR (CLEAR); BILIRUBIN,URINE 0.5 mg/dL (NEGATIVE); COLOR,URINE DARK-YELLOW (YELLOW); GLUCOSE, URINE (UA) 30 mg/dL (NEGATIVE); KETONES,URINE NEGATIVE (NEGATIVE); LEUKOCYTE ESTERASE ,URINE NEGATIVE Leu/uL (NEGATIVE); NITRATE,URINE NEGATIVE (NEGATIVE); OCCULT BLOOD,URINE NEGATIVE (NEGATIVE); PROTEIN,URINE 200 mg/dL (NEGATIVE)
[2023-04-17 19:18] LABS: ADD UA MICROSCOPIC YES
[2023-04-17 19:26] LABS: BACTERIA,URINE FEW /HPF (None Seen); MUCUS,URINE MOD LPF (None Seen); SQUAMOUS EPITHELIAL CELL,UR FEW /HPF (0-2)
[2023-04-17] MEDS ORDERED: MAGNESIUM OXIDE 400 MG TABLET PO ONE (21:30)
[2023-04-17] MEDS ORDERED: PANTOPRAZOLE 40 MG/VIAL IVP ONE (21:30)
[2023-04-17] MEDS ORDERED: ALBUTEROL 0.083% 2.5 MG/3 ML INH IH ONE (21:30)
[2023-04-17] MEDS ORDERED: GUAIFENESIN 600 MG TABLET.ER PO ONE (21:30)
[2023-04-17] MEDS ORDERED: INSULIN HUMULIN R 100 UNIT/ML 3ML SQ ONE (21:30)
[2023-04-17 21:31] VITALS: PULSE 84; RESP 19
[2023-04-17] MEDS ORDERED: HYDRALAZINE 20MG/ML VIAL IV ONE (22:30)
[2023-04-17 23:00] VITALS: BP 167/88; PULSE 88; RESP 20
[2023-04-17] MEDS ORDERED: POTASSIUM CHLORIDE 10MEQ SR TAB PO ONE (23:00)
[2023-04-17] MEDS ORDERED: ONDANSETRON 4MG INJ IVP PRN (23:00)
[2023-04-17] MEDS ORDERED: DEXTROSE 50%-WATER 50 ML DISP.SYRIN IV PRN (23:00)
[2023-04-17] MEDS ORDERED: GLUCAGON 1MG KIT 1 MG ML IM PRN (23:00)
[2023-04-17] MEDS ORDERED: ACETAMINOPHEN 325 MG TAB PO PRN (23:00)
[2023-04-17] MEDS ORDERED: HYDRALAZINE 20MG/ML VIAL IV PRN (23:00)
[2023-04-17] MEDS ORDERED: CLONIDINE HCL 0.1 MG TABLET PO PRN (23:00)
[2023-04-17] MEDS ORDERED: TEMAZEPAM 15 MG CAPSULE PO PRN (23:00)
[2023-04-17] MEDS ORDERED: LACTULOSE 20 GM/30 ML UDCUP PO PRN (23:00)
[2023-04-17] MEDS ORDERED: ACETAMINOPHEN 650 MG SUPPOSITORY RC PRN (23:00)
[2023-04-17 23:28] LABS: HEMOGLOBIN A1C 7.2 % (4.0-6.0)
[2023-04-17 23:34] LABS: RAPID GROUP A STREP negative (NEGATIVE)
[2023-04-17 23:39] LABS: SARS-CoV-2, RNA, NAAT NEGATIVE SARS CoV-2 (NEGATIVE)
[2023-04-18] VITALS (11 sets, daily range): BP systolic 145–179; BP diastolic 63–105; PULSE 72–87; RESP 18–21; O2SAT 96–98
[2023-04-18 01:08] LABS: INFLUENZA TYPE A NEGATIVE FOR TYPE A (NEGATIVE); INFLUENZA TYPE B NEGATIVE FOR TYPE B (NEGATIVE)
[2023-04-18 01:18] LABS: AMPHET/METH SCREEN,URINE NEGATIVE (NEGATIVE); BARBITURATE SCREEN, URINE NEGATIVE (NEGATIVE); BENZODIAZEPINES SCREEN,URINE NEGATIVE (NEGATIVE); CANNABINOID SCREEN,URINE NEGATIVE (NEGATIVE); COCAINE SCREEN,URINE NEGATIVE (NEGATIVE); OPIATE SCREEN,URINE NEGATIVE (NEGATIVE); PHENCYCLIDINE SCREEN,URINE NEGATIVE (NEGATIVE)
[2023-04-18 01:50] LABS: HEMATOCRIT 43.3 % (42-54)
[2023-04-18] MEDS: CEFTRIAXONE 2GM VIAL IVPB SCH (05:16)
[2023-04-18] MEDS: INSULIN HUMULIN R 100 UNIT/ML 3ML SQ SCH ×5 (05:42→19:45)
[2023-04-18 06:08] LABS: BASOPHILS # (AUTO) 0.08 K/uL (0.00-0.20); BASOPHILS % (AUTO) 0.8 % (0.0-5.0); EOSINOPHILS # (AUTO) 0.08 K/uL (0.00-0.70); EOSINOPHILS % (AUTO) 0.8 % (0.0-8.0); HEMATOCRIT 44.8 % (42-54); IMMATURE GRANULOCYTE ABSOLUTE 0.03 K/uL (0-1); LYMPHOCYTES # (AUTO) 2.5 K/uL (1.0-4.8); LYMPHOCYTES % (AUTO) 25.3 % (21.0-51.0); MEAN CORPUSCULAR HEMOGLOBIN 31.7 pg (27.0-33.0); MEAN CORPUSCULAR HGB CONC 35.3 g/dL (32.0-36.0); MEAN CORPUSCULAR VOLUME 89.8 fL (79-99); MONOCYTES # (AUTO) 0.6 K/uL (0.1-1.0); NEUTROPHILS # (AUTO) 6.6 K/uL (1.8-7.7); NEUTROPHILS % (AUTO) 66.8 % (40.0-77.0); PLATELET COUNT (AUTO) 177 K/uL (130-400); RED BLOOD CELL COUNT(AUTO) 4.99 MIL/uL (4.50-6.20); RED CELL DISTRIBUTION WIDTH 12.3 % (11.0-15.5); WHITE BLOOD COUNT (AUTO) 9.8 K/uL (4.8-10.8)
[2023-04-18 06:23] LABS: CREATININE 0.8 mg/dL (0.5-1.5); MAGNESIUM 1.7 mg/dL (1.80-2.40); PHOSPHORUS 3.6 mg/dL (2.5-4.9); POTASSIUM 3.6 mmol/L (3.5-5.1)
[2023-04-18] MEDS ORDERED: POTASSIUM CHLORIDE 10% ELIXIR 20 MEQ/15 ML UDCUP PO PRN (07:00)
[2023-04-18] MEDS ORDERED: POTASSIUM CHLORIDE 10MEQ/100ML 100 ML IV PRN (07:00)
[2023-04-18] MEDS: PANTOPRAZOLE 40 MG TAB DR PO SCH ×2 (08:43→19:25)
[2023-04-18] MEDS: DOCUSATE SODIUM 100 MG CAP PO SCH ×2 (08:44→19:25)
[2023-04-18] MEDS: MAGNESIUM 2GM PREMIX 50ML 50 ML IV PRN (12:12)
[2023-04-18] MEDS: KCL 20 MEQ ERTAB PO PRN (17:26)
[2023-04-18] MEDS: ALBUTEROL 0.083% 2.5 MG/3 ML INH IH PRN (20:09)
[2023-04-18 20:26] LABS: MAGNESIUM 1.8 mg/dL (1.80-2.40); POTASSIUM 3.7 mmol/L (3.5-5.1)
[2023-04-19 01:32] VITALS: PULSE 70; RESP 18
[2023-04-19] MEDS: ALBUTEROL 0.083% 2.5 MG/3 ML INH IH PRN (01:32)
[2023-04-19] MEDS: CEFTRIAXONE 2GM VIAL IVPB SCH (03:14)
[2023-04-19 04:00] VITALS: BP 158/97; PULSE 81; RESP 20
[2023-04-19 04:03] LABS: HEMATOCRIT 43.5 % (42-54); MEAN CORPUSCULAR HEMOGLOBIN 30.2 pg (27.0-33.0); MEAN CORPUSCULAR HGB CONC 34.3 g/dL (32.0-36.0); MEAN CORPUSCULAR VOLUME 88.2 fL (79-99); RED BLOOD CELL COUNT(AUTO) 4.93 MIL/uL (4.50-6.20); WHITE BLOOD COUNT (AUTO) 7.4 K/uL (4.8-10.8)
[2023-04-19 04:43] LABS: CREATININE 0.8 mg/dL (0.5-1.5); MAGNESIUM 1.7 mg/dL (1.80-2.40); POTASSIUM 3.4 mmol/L (3.5-5.1)
[2023-04-19] MEDS: MAGNESIUM 2GM PREMIX 50ML 50 ML IV PRN (04:50)
[2023-04-19] MEDS: KCL 20 MEQ ERTAB PO PRN (04:50)
[2023-04-19] MEDS: INSULIN HUMULIN R 100 UNIT/ML 3ML SQ SCH ×2 (05:32→11:22)
[2023-04-19 06:35] VITALS: PULSE 82; RESP 18; O2SAT 98
[2023-04-19 08:00] VITALS: BP 158/94; PULSE 75; RESP 18; O2SAT 98
[2023-04-19] MEDS: PANTOPRAZOLE 40 MG TAB DR PO SCH (09:43)
[2023-04-19] MEDS: DOCUSATE SODIUM 100 MG CAP PO SCH (09:43)
[2023-04-19] MEDS ORDERED: LACTULOSE 20 GM/30 ML UDCUP PO ONE (10:30)
[2023-04-19 12:00] VITALS: BP 145/79; PULSE 71; RESP 18
== END 2023-04-19 15:30 | disposition home or self-care (01) ==
LOC: EDH 14:39 → EDHIP 22:40 → 4AH 04-18 00:37
PROVIDERS: ADMIT Internal Medicine; ATTEND Internal Medicine
DX: E87.6 Hypokalemia (principal); Z20.822 Contact with and (suspected) exposure to COVID-19; E83.42 Hypomagnesemia; E11.65 Type 2 diabetes mellitus with hyperglycemia; J40 Bronchitis, not specified as acute or chronic; R17 Unspecified jaundice; I11.0 Hypertensive heart disease with heart failure; I50.30 Unspecified diastolic (congestive) heart failure; N28.1 Cyst of kidney, acquired; E78.5 Hyperlipidemia, unspecified; F10.10 Alcohol abuse, uncomplicated; E66.01 Morbid (severe) obesity due to excess calories; I16.1 Hypertensive emergency; R82.71 Bacteriuria; M19.90 Unspecified osteoarthritis, unspecified site; F17.200 Nicotine dependence, unspecified, uncomplicated; Z79.84 Long term (current) use of oral hypoglycemic drugs; Z68.32 Body mass index [BMI] 32.0-32.9, adult; Z79.899 Other long term (current) drug therapy; Y90.0 Blood alcohol level of less than 20 mg/100 ml
CPT/HCPCS: 80076; 85014; 85018; 81001; 96376 ×3; 96361; 96375 ×2; 99285; 83036; 83735 ×4; 80053; 80305; 83690; 85025 ×2; 85651; 86850; 86900; 86901; 87880; 87420; 87804 ×2; 86140; 36415 ×3; 87635; 71045; 74176; 76705; 94640 ×3; 84145; 84132; 96365; 96366; 84100; 80048 ×2; 82140; 82948 ×6; 71100; 85027; J1815; G0378 ×39; J0360 ×2; J2405; J2270 ×2; C9113; J3475 ×2; J0696 ×2

== ENCOUNTER 2024-06-29 00:26 | Emergency (ER) | payer OTHER ==
[~2024-06-29] VITALS: Ht 177.8 cm; Wt 108.9 kg
[~2024-06-29 00:26] MED LIST changes: +AMLO-258 PO; -AMOX1TAB16 PO; +ATOR20TA65 PO; -BENZ-39 PO; +ERGO500093 PO; +FAMO20TA8 PO; +GABA300T25 PO; +HYDR25TA67 PO; +METF-446 PO; +NIFE90TA72 PO; -TRAM1TAB2 PO
[2024-06-29] MEDS ORDERED: TRAM-543 PO (00:38)
[2024-06-29] MEDS ORDERED: IBUP-2070 PO (00:38)
[2024-06-29] MEDS ORDERED: AMOX1TAB16 PO (00:38)
--- NOTE | 2024-06-29 00:39 | ERN ---
ED Note History of Present Illness Stated Complaint: TOOTH ACHE Chief Complaint: Tooth Ache/Pain Time Seen by MD: 00:28 Time Seen by Midlevel: 00:30 Dictation: Mr. Badillo is a 48 year old male with history of obesity, hypertension, GERD, and type 2 diabetes who presented to the emergency department this morning for evaluation of dental pain. He reports several days of right-sided dental pain both upper and lower. He is how has abscess formation left lower molar with drainage. There is swelling of the right cheek. He denies having fever, chills, shortness of breath, cough, chest pain, palpitations, abdominal pain, nausea, vomiting, diarrhea, dysuria, headache, blurred vision, or dizziness. He states he last took a dose of Tylenol at 18 30. He has not yet seen a dentist for these symptoms Allergies: Coded Allergies: No Known Allergies (Verified Allergy, Unknown, 12/15/13) No Known Drug Allergies (Unverified Allergy, Unknown, 05/27/19) Home Meds Active Scripts Tramadol HCl/Acetaminophen (Tramadol-Acetaminophn 37.5-325) 37.5 Mg-325 Mg Tablet, 1 EACH PO [id number], #10 TAB 0 Refills Prov:NATALIE STATON NP 06/29/24 Ibuprofen (Ibuprofen) 600 Mg Tablet, 600 MG PO Q6H PRN for PAIN, #15 TAB 0 Refills Prov:NATALIE STATON NP 06/29/24 Amoxicillin/Potassium Clav (Amox Tr-K Clv 875-125 mg Tab) 875 Mg-125 Mg Tablet, 1 TAB PO BID for 7 Days, #14 TAB 0 Refills Prov:NATALIE STATON NP 06/29/24 Famotidine (Famotidine) 20 Mg Tablet, 20 MG PO BID, #30 TAB Prov:MOOKIE POLANCO MD 10/29/23 Cyclobenzaprine HCl (Flexeril) 10 Mg Tab, 10 MG PO BID, #30 TAB Prov:CLIFTON LIVINGSTON 11/03/21 Tamsulosin HCl (Flomax) 0.4 Mg Cap.er.24h, 0.8 MG PO DAILY, #30 CAPSULE. Prov:KJ STORM NP 09/05/21 Reported Medications Nifedipine (Nifedipine ER) 90 Mg Tablet.er, 90 MG PO DAILY, TAB 10/29/23 Losartan Potassium (Losartan Potassium) 50 Mg Tablet, 50 MG PO BID, TAB 10/29/23 Ergocalciferol (Vitamin D2) (Vitamin D2) 1,250 Mcg (36159 Unit) Capsule, 1250 MCG PO DAILY, CAP 10/29/23 Gabapentin (Gralise) 300 Mg Tab.er.24h, 300 MG PO DAILY, TAB 10/29/23 Amlodipine Besylate (Amlodipine Besylate) 10 Mg Tablet, 10 MG PO DAILY for 30 Days, #30 TAB 0 Refills 10/29/23 Atorvastatin Calcium (Atorvastatin Calcium) 20 Mg Tablet, 20 MG PO DAILY, TAB 10/29/23 Carvedilol (Carvedilol) 25 Mg Tablet, 25 MG PO BID, TAB 10/29/23 Metformin HCl (Metformin HCl) 1,000 Mg Tablet, 1000 MG PO DAILYLUNCH, TAB 10/29/23 Hydralazine HCl (Hydralazine HCl) 25 Mg Tablet, 25 MG PO TID, TAB 10/29/23 Losartan Potassium (Losartan Potassium) 50 Mg Tablet, 50 MG PO DAILY, TAB 08/31/21 Omeprazole (Omeprazole) 20 Mg Capsule.dr, 20 MG PO DAILY, CAP 08/31/21 Metformin HCl (Metformin HCl) 500 Mg Tablet, 500 MG PO BID, TAB 08/31/21 Carvedilol (Carvedilol) 25 Mg Tablet, 25 MG PO BID, TAB 11/11/18 Atorvastatin Calcium (LIPITOR) 20 Mg Tab, 20 MG PO HS, TAB 11/11/18 Hydrochlorothiazide (Hydrochlorothiazide) 25 Mg Tablet, 25 MG PO DAILY, TAB 11/11/18 Past Medical History Past Medical History: Diabetes-Type II, Hypertension Additional Past Medical Hx: MDR, morbidly obese Surgical History: None Surgical History Other: VASECTOMY PSYCH History: no pertinent psych hx Family History: Negative Social History: Negative RN Note Reviewed/Agreed w/PFSH: Yes Review of System Dictation REVIEW OF SYSTEMS: CONSTITUTIONAL: Patient denies fevers, chills, sweats and weight changes. EYES: Patient denies any visual symptoms. EARS, NOSE, AND THROAT: No difficulties with hearing. No symptoms of rhinitis or sore throat. Reports broken tooth with cavity right upper and right lower molars. Now with abscess/drainage. Has not yet seen a dentist for these CARDIOVASCULAR: Patient denies chest pains, palpitations, orthopnea and paroxysmal nocturnal dyspnea. RESPIRATORY: No dyspnea on exertion, no wheezing or cough. GI: No nausea, vomiting, diarrhea, constipation, abdominal pain, hematochezia or melena. : No urinary hesitancy or dribbling. No nocturia or urinary frequency. No abnormal urethral discharge. MUSCULOSKELETAL: No myalgias or arthralgias. NEUROLOGIC: No chronic headaches, no seizures. Patient denies numbness, tingling or weakness. PSYCHIATRIC: Patient denies problems with mood disturbance. No problems with anxiety. ENDOCRINE: No excessive urination or excessive thirst. DERMATOLOGIC: Patient denies any rashes or skin changes. Initial Vital Sign VS Vital Signs Date Time Temp Pulse Resp B/P (MAP) Pulse Ox O2 Delivery O2 Flow Rate FiO2 06/29/24 00:27 98.8 88 20 206/127 97 Room Air 0 Physical Exam Dictation Vital signs: Reviewed. Afebrile Constitutional: No acute distress. Non-toxic appearing. Head/Face: Normocephalic, atraumatic. Eyes: Periorbital areas with no swelling, redness, or edema. Lids and lashes are normal. Conjunctival injection is absent. Sclera anicteric. Pupils equal, round, reactive to light. ENT: Pinnas intact and no signs of trauma or erythema. Ear canals clear and no discharge. TMs no erythema. No nasal discharge or bleeding noted. Oropharynx with no exudate, redness, swelling, masses, exudates, or evidence of obstruction. Uvula midline. Mucous membranes moist. There is swelling to right cheek. Right lower molar 18. With abscess formation/drainage at gum line. He also has discomfort to cracked tooth with cavity to right upper 14. Neck: Trachea midline, no masses palpated, and no cervical lymphadenopathy. No swelling. Supple, full range of motion. Chest/Axilla: No tenderness, no crepitus, no paradoxical movement, no retractions. Cardiovascular: Regular rate, regular rhythm, no murmur, no gallops. Symmetric pulses. No peripheral edema. Hypertensive blood pressure readings Respiratory: Respirations even and unlabored. Lung sounds clear; no wheezes, rales or rhonchi. Room air SpO2 99% Gastrointestinal: Inspection is normal. No distention is appreciated. Bowel sounds are normal. No mass or organomegaly . There is no tenderness. No rebound. No rigidity. No voluntary or involuntary guarding. No Holm's sign. Neurological: Normal speech, gross motor function intact, gross sensory function intact. No focal weakness/Paresthesia. Musculoskeletal/Extremities: All extremities have full range of motion, no pain or tenderness on palpation. Symmetric pulses. Integumentary: Intact. Skin is normal color, warm and dry. Cap refill less than 3 seconds. ED Course ED Course Orders Procedure Category Date Status Time Ketorolac 60mg/2ml PHA 06/29/24 Complete (Toradol 60mg/2ml) 01:00 Hydrocodone/Apap PHA 06/29/24 Complete 5/325 ([place] 5/325mg) 01:00 Ceftriaxone 1g Vial PHA 06/29/24 Complete (Rocephine 1g Inj) 01:00 Current Medications Medications (Trade) Dose Ordered Sig/Ramiro Route PRN Reason Start Time Stop Time Status Last Admin Dose Admin Acetaminophen/ Hydrocodone Bitart (NORco 5/325MG) 1 tab ONCE ONCE PO 06/29/24 01:00 06/29/24 01:01 DC Ceftriaxone Sodium (ROCEphine 1G INJ) 1 gm ONCE ONCE IM 06/29/24 01:00 06/29/24 01:01 DC Ketorolac Tromethamine (toRADol 60MG/ 2ML) 60 mg ONCE ONCE IM 06/29/24 01:00 06/29/24 01:01 DC Vital Signs Date Time Temp Pulse Resp B/P (MAP) Pulse Ox O2 Delivery O2 Flow Rate FiO2 06/29/24 00:27 98.8 88 20 206/127 97 Room Air 0 Upon arrival to the ED noted pain 8/10 with elevated blood pressure of 206/127. He was given doses Toradol and [place] for discomfort as well as initial dose of antibiotic with Rocephin 1 g IM. BP trending down. Findings were discussed with patient and significant other. He will need to follow up with a dentist as soon as possible. Medical Decision Making MDM MDM: Differential diagnosis: Dental abscess, dental jolanta Rationale: Tests considered and ordered secondary to shared decision making include: Examination Previous outside records reviewed: Old ER visits. Risk of complication and/or morbidity or mortality of patient management: None Medications-Per medication reconciliation Need for hospitalization: Patient does not meet criteria for hospitalization. Need for emergency major/minor surgery: No There are no social concerns with this patient. Prescription drug management: Ibuprofen, tramadol, Augmentin Prescriptions will include symptomatic care Patient's prior external medical records from other ER visits were reviewed by me as indicated. Prior testing and results from previous visits were reviewed. Prior tests were taken into account with medical decision making and resource utilization, independent historian/historians were used to obtain complete medical history. I independently interpreted the test that were performed, results were reviewed by me and considered findings on radiology if ordered. Medical management and examination interpretation discussions were had by me with other qualified healthcare professionals as indicated for the patient's care. DX & DISP Disposition: Discharge Departure Impression: Primary Impression: Infected dental caries Additional Impressions: Abscess, dental, Hypertension Condition: Stable Scripts Tramadol HCl/Acetaminophen (Tramadol-Acetaminophn 37.5-325) 37.5 Mg-325 Mg Tablet 1 EACH PO [id number], #10 TAB 0 Refills Prov: NATALIE STATON NP 06/29/24 Ibuprofen (Ibuprofen) 600 Mg Tablet 600 MG PO Q6H PRN for PAIN, #15 TAB 0 Refills Prov: NATALIE STATON NP 06/29/24 Amoxicillin/Potassium Clav (Amox Tr-K Clv 875-125 mg Tab) 875 Mg-125 Mg Tablet 1 TAB PO BID for 7 Days, #14 TAB 0 Refills Prov: NATALIE STATON MIMEOGRAPHER 06/29/24 Additional Instructions: Drink plenty of fluids. Soft foods. Warm saltwater rinses3 times daily. Continue antibiotic with Augmentin twice daily for seven days. May take ibuprofen every 6 hours as needed for pain. May take tramadol every12 hours as needed for worse pain. It is imperative that you follow up as soon as possible with a dentist. Keep a log of your blood pressure is. Continue current antihypertensive medication and follow up with your PCP later this week. Return to the emergency department for any worsening of symptoms or concerns. Referrals: VIVIANA LOJA M.D. (PCP) TRAVON RENE MD Time of Disposition: 02:30 NATALIE STATON NP Jun 29, 2024 00:39
[2024-06-29] MEDS: ketOROlac 60 MG VIAL (30MG/ML) IM ONE (02:34)
[2024-06-29] MEDS: HYDROcodone/APAP 5/325 1 TAB TABLET PO ONE (02:34)
[2024-06-29] MEDS: cefTRIAXone 1G VIAL IM ONE (02:34)
[2024-06-29 02:47] VITALS: BP 161/87; PULSE 82; RESP 19; TEMP 98.6; O2SAT 98
== END 2024-06-29 02:52 | disposition home or self-care (01) ==
LOC: EDH 00:26
DX: K02.9 Dental caries, unspecified (principal); K04.7 Periapical abscess without sinus; E11.9 Type 2 diabetes mellitus without complications; E66.01 Morbid (severe) obesity due to excess calories; I10 Essential (primary) hypertension; Z79.84 Long term (current) use of oral hypoglycemic drugs; Z79.899 Other long term (current) drug therapy
CPT/HCPCS: 99284; 96372 ×2; J1885; J0696